=== PATIENT | male | born 1980 | race American Indian/Alaskan Native ===

== ENCOUNTER 2016-08-16 04:55 | Emergency (ER) | payer MEDICAID ==
[2016-08-16 04:55] VITALS: BMI 34.9
[2016-08-16 05:21] VITALS: O2SAT 98
[2016-08-16] MEDS ORDERED: Oxycodone/Acetaminophen 5/325 mg Tab PO STA (05:57)
--- NOTE | 2016-08-16 06:03 | C.PDOC ---
History Per: Patient History/Exam Limitations: no limitations Onset/Duration Of Symptoms: Hrs Current Symptoms Are (Timing): Still Present Quality Of Discomfort: "Pain" Severity: Mild Previous Symptoms: Chronic Pain (Back pain) Associated Symptoms: denies: Incontinence, New Weakness, New Numbness Recent travel outside of the [place]: No Additional History Per: Patient Time Seen by Provider: 08/16/16 05:49 Chief Complaint (Nursing): Back Pain Past Medical History Reviewed: Historical Data, Nursing Documentation, Vital Signs - Medical History PMH: Depression, Fractures (had fx of the left ankle) Denies: Crohn's Disease, Diverticulitis, Gastrointestinal Ulcer, Gall Bladder Disease, HIV, HTN, Hyperthyroidism, Hypothyroidism, Kidney Stones, Pancreatitis, Chronic Kidney Disease, Seizures, Sexually Transmitted Disease Surgical History: Denies: Appendectomy, Cholecystectomy, Coronary Stent Family History: States: Unknown Family Hx - Social History Hx Tobacco Use: Yes Hx Alcohol Use: No Hx Substance Use: No (SMOKES PCP) - Immunization History Hx Tetanus Toxoid Vaccination: No Hx Influenza Vaccination: No Hx Pneumococcal Vaccination: No Review Of Systems Constitutional: Negative for: Fever, Chills, Other (Trauma) Genitourinary: Negative for: Incontinence (Urine or bowel) Musculoskeletal: Positive for: Back Pain Neurological: Negative for: Weakness, Numbness Physical Exam - Physical Exam Appears: Non-toxic, No Acute Distress Skin: Warm, Dry Head: Atraumatic, Normacephalic Eye(s): bilateral: Normal Inspection Chest: Symmetrical Cardiovascular: Rhythm Regular, No Murmur Respiratory: Normal Breath Sounds, No Accessory Muscle Use, No Wheezing Back: Vertebral Tenderness, Paraspinal Tenderness (Bilateral paralumbar tenderness) Pulses: Left Dorsalis Pedis: Normal, Right Dorsalis Pedis: Normal Neurological/Psych: Oriented x3, Normal Speech, Normal Cognition, Normal Motor ( Good strength), Normal Sensation Gait: Other (Pt is ambulatory with a limb due to pain) ED Course And Treatment O2 Sat by Pulse Oximetry: 98 (RA) Pulse Ox Interpretation: Normal Progress Note: Impression: 36 y/o male c/o back pain since this morning. Plans : Valium, Toradol, oxyCODONE, Reassess. Pt is improving with the back pain and is in no acute distress. Pt was advised to follow up with PMD if symptoms persists. - Scribe Statement The provider has reviewed the documentation as recorded by the Scribe - Scribe Statement Stacey sky All medical record entries made by the Scribe were at my direction and personally dictated by me. I have reviewed the chart and agree that the record accurately reflects my personal performance of the history, physical exam, medical decision making, and the department course for this patient. I have also personally directed, reviewed, and agree with the discharge instructions and disposition. (Merlin Peter)
[2016-08-16] MEDS ORDERED: Oxycodone/Acetaminophen 5/325 mg Tab ONE (06:04)
--- NOTE | 2016-08-16 06:15 | C.PDOC ---
History Of Present Illness A 36 y/o male with a Hx of chronic back pain, c/o exacerbation of back pain that began this morning. Pt denies fever, chills, trauma, weakness, numbness, incontinence, or any other complaints. Pt notes that he ran out of pain meds. Time Seen by Provider: 08/16/16 05:49 Chief Complaint (Nursing): Back Pain History Per: Patient History/Exam Limitations: no limitations Onset/Duration Of Symptoms: Hrs Current Symptoms Are (Timing): Still Present Quality Of Discomfort: "Pain" Severity: Mild Previous Symptoms: Chronic Pain (Back pain) Associated Symptoms: denies: Incontinence, New Weakness, New Numbness Recent travel outside of the [place]: No Additional History Per: Patient Past Medical History Reviewed: Historical Data, Nursing Documentation, Vital Signs Vital Signs: Last Vital Signs Temp 98.8 F 08/16/16 06:33 Pulse 77 08/16/16 06:33 Resp 22 08/16/16 06:33 BP 110/72 08/16/16 06:33 Pulse Ox 98 08/16/16 06:33 - Medical History PMH: Depression, Fractures (had fx of the left ankle) Denies: Crohn's Disease, Diverticulitis, Gastrointestinal Ulcer, Gall Bladder Disease, HIV, HTN, Hyperthyroidism, Hypothyroidism, Kidney Stones, Pancreatitis, Chronic Kidney Disease, Seizures, Sexually Transmitted Disease Surgical History: Denies: Appendectomy, Cholecystectomy, Coronary Stent - [facility] Procedures INDIVID PSYCHOTHERAP NEC (09/05/14) OTHER GROUP THERAPY (09/05/14) PSYCHIAT DRUG THERAP NEC (09/05/14) Family History: States: Unknown Family Hx - Social History Hx Tobacco Use: Yes Hx Alcohol Use: No Hx Substance Use: No (SMOKES PCP) - Immunization History Hx Tetanus Toxoid Vaccination: No Hx Influenza Vaccination: No Hx Pneumococcal Vaccination: No Review Of Systems Constitutional: Negative for: Fever, Chills, Other (Trauma) Genitourinary: Negative for: Incontinence (Urine or bowel) Musculoskeletal: Positive for: Back Pain Neurological: Negative for: Weakness, Numbness Physical Exam - Physical Exam Appears: Non-toxic, No Acute Distress Skin: Warm, Dry Head: Atraumatic, Normacephalic Eye(s): bilateral: Normal Inspection Chest: Symmetrical Cardiovascular: Rhythm Regular, No Murmur Respiratory: Normal Breath Sounds, No Accessory Muscle Use, No Wheezing Back: Vertebral Tenderness, Paraspinal Tenderness (Bilateral paralumbar tenderness) Extremity: Normal ROM Extremity: Bilateral: Atraumatic, Normal Color And Temperature Pulses: Left Dorsalis Pedis: Normal, Right Dorsalis Pedis: Normal Neurological/Psych: Oriented x3, Normal Motor, Normal Sensation Gait: Other (Pt is ambulatory with a mild limp due to pain) ED Course And Treatment O2 Sat by Pulse Oximetry: 98 (RA) Pulse Ox Interpretation: Normal Progress Note: Impression: 36 y/o male c/o back pain since this morning. Plans : Valium, Toradol, oxyCODONE, Reassess. Pt with improving back pain and is in no acute distress. Pt was advised to follow up with PMD if symptoms persists. Ambulatory at discharge Reevaluation Time: 06:43 Reassessment Condition: Improved Disposition Counseled Patient/Family Regarding: Diagnosis, Need For Followup, Rx Given - Disposition Disposition: HOME/ ROUTINE Disposition Time: 06:43 Condition: STABLE Additional Instructions: Take meds as directed Follow up with PMD Follow up with pain management doctor Return to ER if worse Prescriptions: diaZEpam [Valium] 5 mg PO BID #10 tab Naproxen [Naprosyn Tab] 500 mg PO BID #20 tab - Clinical Impression Clinical Impression: Low back pain - Scribe Statement The provider has reviewed the documentation as recorded by the Neliibasher sky All medical record entries made by the Neliibasher were at my direction and personally dictated by me. I have reviewed the chart and agree that the record accurately reflects my personal performance of the history, physical exam, medical decision making, and the department course for this patient. I have also personally directed, reviewed, and agree with the discharge instructions and disposition.
[2016-08-16 06:34] VITALS: BP 110/72; PULSE 77; RESP 22; TEMP 98.8
== END 2016-08-16 07:22 | disposition home or self-care (01) ==
LOC: C.ER 04:55
DX: M54.5 Low back pain (principal)
CPT/HCPCS: 96372; 99283; J1885